=== PATIENT | female | born 1965 | race Caucasian/White ===

== ENCOUNTER 2024-06-22 15:02 | Outpatient (CLI) | payer OTHER | END 2024-06-22 15:03 | disposition home or self-care (01) | LOC: CSHMAMMO 15:02 | PROVIDERS: ATTEND Family Medicine | DX: N95.9 Unspecified menopausal and perimenopausal disorder (principal); M81.0 Age-related osteoporosis without current pathological fracture; M85.88 Other specified disorders of bone density and structure, other site | CPT/HCPCS: 77080 ==

== ENCOUNTER 2024-08-20 09:31 | Outpatient (CLI) | payer OTHER | END 2024-08-20 09:32 | disposition home or self-care (01) | LOC: CSHRAD 09:31 | PROVIDERS: ATTEND Surgery | DX: K21.9 Gastro-esophageal reflux disease without esophagitis (principal); K44.9 Diaphragmatic hernia without obstruction or gangrene | CPT/HCPCS: 74246 ==

== ENCOUNTER 2024-08-24 10:18 | Outpatient (CLI) | payer OTHER ==
[2024-08-24 11:11] LABS: Hematocrit 41.3 % (34.9-44.5); Hemoglobin 13.1 g/dL (12.0-15.5); Mean Corpuscular HGB CONC 31.7 g/dL (32.0-36.0); Mean Corpuscular Hemoglobin 27.9 pg (27.0-33.0); Mean Corpuscular Volume 87.9 fL (81.6-98.3); Platelet Count 242 10x3/uL (150-450); RBC Distribution Width 13.3 % (11.5-14.5); White Blood Cell (WBC) Count 10.2 10x3/uL (3.5-10.5)
[2024-08-24 11:55] LABS: Anion Gap 13 mmol/L (10-20); BUN (Urea Nitrogen) 17 mg/dL (9.8-20.1); Calc. Creatinine Clearance 0 mL/min (70-130); Calcium 8.8 mg/dL (7.8-10.44); Carbon Dioxide 24 mmol/L (23-31); Chloride 105 mmol/L (98-107); Estimated GFR 92; Glucose 97 mg/dL (80-115); Potassium 4.8 mmol/L (3.5-5.1); Sodium 137 mmol/L (136-145)
== END 2024-08-24 10:19 | disposition home or self-care (01) ==
LOC: CSHLAB 10:18
PROVIDERS: ATTEND Surgery
DX: Z01.818 Encounter for other preprocedural examination (principal); K21.9 Gastro-esophageal reflux disease without esophagitis; R94.31 Abnormal electrocardiogram [ECG] [EKG]
CPT/HCPCS: 80048; 85027; 93005; 93010

== ENCOUNTER 2024-09-02 05:47 | Emergency (ER) | payer OTHER ==
[2024-09-02] MEDS ORDERED: Ketorolac Tromethamine 30 MG (1 mL) VIAL ONE (06:02)
== END 2024-09-02 06:10 | disposition home or self-care (01) ==
LOC: CSHERS 05:47
DX: M54.41 Lumbago with sciatica, right side (principal)
CPT/HCPCS: 96372; 99283; J1885